=== PATIENT | female | born 1975 | race American Indian/Alaskan Native ===

== ENCOUNTER 2017-09-19 13:23 | Outpatient (CLI) | payer BC ==
--- NOTE | 2017-09-20 14:17 | Mammography Report ---
BILATERAL DIGITAL SCREENING MAMMOGRAM with CAD: 09/19/17 13:23:00 CLINICAL: Routine screening. COMPARISON: 10/13/15 FINDINGS: There are bilateral scattered areas of fibroglandular density.No mass, architectural distortion or suspicious calcifications. IMPRESSION: No mammographic evidence of malignancy. BI-RADS CATEGORY: 1 -- Negative RECOMMENDATION: Routine mammographic screening in one year. COMMENT: Patient follow-up letters are generated by our [employer] application.
== END 2017-09-19 13:24 | disposition home or self-care (01) ==
LOC: SPVWC 13:23
PROVIDERS: ATTEND Obstetrics & Gynecology
DX: Z12.31 Encounter for screening mammogram for malignant neoplasm of breast (principal)
CPT/HCPCS: 77067

== ENCOUNTER 2017-11-23 06:07 | Day surgery (SDC) | payer BC ==
--- NOTE | 2017-11-22 20:02 | History and Physical Report ---
History of Present Illness Date of examination: 11/19/17 History of present illness: Patient has been reassessed/reevaluated. H&P has been reviewed. No interval changes. This is a 42 years old female who presents with pelvic pain. patient has been seen twice in last 6 months for severe pelvic last visit revealed 10 cm dermoid cyst. Patient seen by Dr Christopher recently Records reviewed . She complains of dysmenorrhea and back pain, but denies dysuria, dyspareunia, vaginal itching, vaginal discharge, vaginal odor, painful bowel movements, constipation, diarrhea, nausea and fever. Pain is located suprapubic, flank and low back. She describes the pain as sharp and cramping. Patient notes pain is worse with activity. Patient notes pain is better with narcotics. Patient workup included a repeat ultrasound which revealed a persistent large right ovarian mass consistent with a teratoma Vital Signs: Patient Profile: 42 Years Old Female LMP: 10/30/2017 Height: 67.5 inches (171.45 cm) Weight: 178 pounds BMI: 27.46 Menstrual History: LMP (date): 10/30/2017 Current Method of Contraception: Essure Date of Last Pap Smear: 09/25/2017 Past History : 4 Term Births: 2 Premature Births: 0 Living Children: 2 Para: 2 Mult. Births: 0 Prev : 0 Prev. attempt? none Aborta: 2 Elect. Ab: 2 Spont. Ab: 0 Ectopics: [address] LIAISON History Operations: Essure Tubal Ligation (2014) Abnormal PAP: negative Uterine Anomaly: positive fibroids Infection History HIV Risk Eval: no Hx of STD: None Active Medications (reviewed today): None Current Allergies (reviewed today): No known allergies Past Medical History: Fibroids Past Surgical History: Essure Tubal Ligation (2014) Family History Summary: Mother (biol.) - Has Family History of Hypertension - Entered On: 10/08/2017 Social History: Reviewed history from 09/24/2017 and no changes required: Patient is single Smoking History: Patient has never smoked. Risk Factors: Smoked Tobacco Use: Never smoker Smokeless Tobacco Use: Never Passive smoke exposure: no Drug use: no HIV high-risk behavior: no Alcohol use: yes Exercise: no Seatbelt use: 100 % PAP Smear History: Date of Last PAP Smear: 09/25/2017 Review of Systems General Denies fever, chills, sweats, anorexia, fatigue, weakness, malaise, weight loss and sleep disorder. Complains of menorrhagia, pelvic pain and painful periods. Denies vaginal discharge, incontinence, dysuria, hematuria, urinary frequency, amenorrhea, abnormal vaginal bleeding, genital sores, decreased libido, painful sex, urinary urgency, hot flashes, vaginal dryness, vaginal itching and vaginal odor. CV Denies chest pains, palpitations, syncope, dyspnea on exertion, orthopnea, PND and peripheral edema. Resp Denies cough, dyspnea at rest, excessive sputum, hemoptysis, wheezing and pleurisy. GI Denies nausea, vomiting, diarrhea, constipation, change in bowel habits, abdominal pain, melena, hematochezia, jaundice, gas/bloating, indigestion/ heartburn, dysphagia and odynophagia. Breast Denies left breast lump, right breast lump, nipple discharge, bloody discharge from nipple, breast pain, abnormal mammogram and breast enlargement. MS Complains of back pain. Psych Denies depression, anxiety, irritability and mood swings. Past History Past Medical History: other (see HPI) Past Surgical History: Other (see HPI) Social history: other (see HPI) Family history: other (see HPI) Medications and Allergies Allergies Allergy/AdvReac Type Severity Reaction Status Date / Time No Known Allergies Allergy Unverified 11/22/17 10:23 Home Medications Medication Instructions Recorded Confirmed Last Taken Type No Known Home Medications [No 11/22/17 11/22/17 Unknown History Reported Home Medications] Active Meds: Active Medications Lactated Ringer's (Lactated Ringers) 1,000 mls @ 100 mls/hr IV DIRECT MELYSSA Midazolam HCl (Versed) 2 mg IV PREOP NR Stop: 11/23/17 23:59 Review of Systems Constitutional: other (see HPI) Exam - Physical Exam Narrative exam: HEENT: normocephalic, no lesions or deformities Neck/Thyroid: supple, thyroid normal Skin no significant abnormal lesions or rashes Chest: respiratory effort normal, clear to auscultation Breasts: skin/areolae normal, no masses, no nipple discharge, no erythema/warmth /tenderness, and axillae normal. CV: regular, normal S1-S2, no murmur, no rub, no gallop Abdomen: normal bowel sounds, soft, nontender, no HSM Musculoskeletal: grossly normal ROM in joints, no joint tenderness or muscle weakness Neuro: no gross anomalities Extremities: no clubbing, cyanosis, or edema COURT LIAISON Exams Vulva/Vagina: No lesions, normal BUS, normal rugae Cervix: No lesions; no cervical motion tenderness Uterus: enlarged uterus 14 -16 weeks in size Adnexae: mass appreciated Rectovaginal: exam defered Results - Labs CBC & Chem 7: 11/23/17 06:30 Assessment and Plan - Patient Problems (1) Ovarian mass, right Current Visit: No Status: Acute Plan to address problem: Discussed ultrasound findings patient ovarian mass appears to beconsistent with dermoid cyst.Diagnosis explained to patient . Questions answered. Discussed indication for operative treatment. Discuss the risks of the surgery including infection, bleeding possibly heavy enough to require a blood transfusion, possible damage to adjacent organs. discuss of possibility of laparotomy needed. Questions answered patient agreed to proceed Benign teratoma explained. Questions answered. Patient desires to try to preserve ovarian tissue where the mass is but understands that the mass is taking up most of her ovary and oophorectomy will most likely be done. Patient understands and desires to proceed. Orders: (2) Intramural leiomyoma of uterus Current Visit: No Status: Chronic Plan to address problem: Patient desires expectant management for now (3) Pelvic pain Current Visit: No Status: Acute
[~2017-11-23 06:07] MED LIST: ANCEF/STERILE WATER 2 GM/20 ML 2 GM/20 ML SYRINGE IV NR; LACTATED RINGERS 1,000 ML IV SCH; VERSED IV NR
[2017-11-23 07:00] LABS: Basophils % (Auto) 0.5 % (0.0-1.8); Eosinophils # (Auto) 0.3 K/mm3 (0.0-0.4); Eosinophils % (Auto) 4.5 % (0.0-4.3); Hematocrit 36.2 % (30.3-42.9); Hemoglobin 11.8 gm/dl (10.1-14.3); Lymphocytes # (Auto) 1.4 K/mm3 (1.2-5.4); Lymphocytes % (Auto) 23.3 % (13.4-35.0); Mean Corpuscular HGB Conc 33 % (30-34); Mean Corpuscular Volume 75 fl (79-97); Monocytes # (Auto) 0.6 K/mm3 (0.0-0.8); Monocytes % (Auto) 9.6 % (0.0-7.3); Platelet Count 218 K/mm3 (140-440); Red Blood Count 4.84 M/mm3 (3.65-5.03); Red Cell Distribution Width 14.9 % (13.2-15.2)
[2017-11-23 07:06] LABS: Mean Corpuscular Hemoglobin 24 pg (28-32)
[2017-11-23] MEDS ORDERED: SUBLIMAZE ONE (07:22)
[2017-11-23] MEDS ORDERED: XYLOCAINE MPF 2% ONE (07:22)
[2017-11-23] MEDS ORDERED: ZEMURON IV ONE ×2 (07:22→10:14)
[2017-11-23] MEDS ORDERED: DIPRIVAN 10 MG/ML IV ONE (07:23)
[2017-11-23] MEDS ORDERED: DECADRON ONE (07:30)
[2017-11-23] MEDS ORDERED: ANCEF/STERILE WATER 2 GM/20 ML IV NR (08:00)
--- NOTE | 2017-11-23 08:10 | Anesthesia Consultation ---
Anesthesia Consult and Med Hx Date of service: 11/23/17 - Airway Anesthetic Teeth Evaluation: Poor (sverely loose bottom tooth ) ROM Head & Neck: Adequate Mental/Hyoid Distance: Adequate Mallampati Class: Class I Intubation Access Assessment: Good - Pulmonary Exam CTA: Yes - Cardiac Exam Cardiac Exam: RRR - Pre-Operative Health Status ASA Pre-Surgery Classification: ASA2 Proposed Anesthetic Plan: General - Pulmonary Hx Smoking: Yes (Former) - Other Systems Hx Alcohol Use: Yes (occas)
--- NOTE | 2017-11-23 08:11 | Anesthesia Day of Surgery ---
Anesthesia Day of Surgery - Day of Surgery Patient Examined: Yes Patient H&P Reviewed: Yes Patient is NPO: Yes
[2017-11-23] MEDS ORDERED: DEMEROL IV PRN (09:51)
[2017-11-23] MEDS ORDERED: ZOFRAN IV PRN (09:51)
--- NOTE | 2017-11-23 09:52 | Anesthesia Day of Surgery ---
Anesthesia Day of Surgery - Day of Surgery Patient Examined: Yes Patient H&P Reviewed: Yes Patient is NPO: Yes
--- NOTE | 2017-11-23 09:53 | Anesthesia Consultation ---
Anesthesia Consult and Med Hx Date of service: 11/23/17 - Airway Anesthetic Teeth Evaluation: Good ROM Head & Neck: Adequate Mental/Hyoid Distance: Adequate Mallampati Class: Class I Intubation Access Assessment: Good - Pulmonary Exam CTA: Yes - Cardiac Exam Cardiac Exam: RRR - Pre-Operative Health Status ASA Pre-Surgery Classification: ASA2 Proposed Anesthetic Plan: General - Pulmonary Hx Smoking: Yes (Former) - Central Nervous System Hx Psychiatric Problems: No - Other Systems Hx Alcohol Use: Yes (occas) Hx Cancer: No
[2017-11-23] MEDS ORDERED: MARCAINE 0.25% INFILTRATI ONE ×2 (10:00→11:13)
[2017-11-23] MEDS ORDERED: NEO SYNEPHRINE/NS Syringe(OR USE) IV ONE (10:14)
[2017-11-23] MEDS ORDERED: ZOFRAN ONE (11:09)
[2017-11-23] MEDS ORDERED: NACL 0.9% IR ONE ×2 (11:13)
[2017-11-23] MEDS ORDERED: ROBINUL ONE (11:18)
[2017-11-23] MEDS ORDERED: BLOXIVERZ ONE (11:18)
--- NOTE | 2017-11-23 11:51 | Operative Report ---
Operative Report Operative Report: Date of procedure: 11/23/2017 Pre-operative diagnosis: Right ovarian mass Post-operative diagnosis: Right dermoid cyst and leiomyomata including a cervical canal myoma. Procedure name(s):Robotic Assisted right salpingo-oophorectomy Surgeon: Tobias Topete MD [employer] Sleeve Worker: Sejal damicocertified registered dental assistant Anesthesia: General EBL: Minimal Complications: None Findings: Patient with the normal-appearing left adnexa with a approximately 10 cm in diameter right dermoid cyst which had a sebaceous appearing fluid and hair Specimen(s): Right adnexa Procedure: Patient was brought to the operating room where general anesthesia was induced without difficulty. Patient was placed in the dorsal lithotomy position. Prepped and draped in the usual sterile manner for robotic procedure. Dietrich catheter was placed without difficulty. Speculum was placed in the vagina. Could not place uterine manipulator appearance of possible myoma in the cervical canal. Sponge stick was placed within the uterine manipulation. Attention was now switched to the patient's abdomen. A vertical supra-umbilicus incision was made with a scalpel. A 10-12 trocar was placed in this incision under direct visualization. Intra-abdominal placement was verified with no evidence of internal organ damage. The patient pelvic findings were noted as above. It was determined that the patient was a candidate for robotic procedure. On both sides the umbilical incision at about 8 cm, incisions were made for robotic trocar. Each robotic trocar was placed under direct visualization with no evidence of internal organ damage. Two surgery nurse ports were then placed. One 8-10 trocar was placed 2 fingerbreadths above the right iliac crest. The second [address] between the camera port and the right robotic arms port. At this time the patient was placed in extreme Trendelenburg. The da Niecy robot was then docked on the patient's left side. The trocars connected to the robot appropriately. At this time I took my place under the robotic operating olvera. Starting on the patient's right side the mesosalpinx of the tube were cauterized for mild distal to proximal tube. Bipolar cautery was placed across the proximal portion of the fallopian tube. This area was cauterized and cut the fallopian tube was then removed from the large optometry assistant port. The ovarian vessels were identified and the right ureter was clearly seen in our operative field. The infundibulopelvic pelvis vessels were cauterized and cut freeing the large mass. Endo Catch was placed through the large optometry assistant port. The ovarian mass due to its sides had to be deflated in order to place in the Endo Catch. The time this sebaceous fluid and hair could be seen as a drain did drain into the pelvis. The deflated mass and place an Endo Catch and removed through the lower right optometry assistant port. All pedicles were inspected and found to be hemostatic. The ureters were identified bilaterally and found to be functioning normal. The patient had clear urine in the Dietrich catheter with no evidence of mixture with blood. The patient's pelvis and upper abdomen was copiously irrigated with approximately 4 L of irrigation until clear irrigation fluid was noted. During the irrigation the patient was disconnected from the da Niecy device in order to place an reverse Trendelenburg to clearly rinse and suctioned of fluid from the abdomen. All instruments were then removed. The large trocar sites were closed in layers and 4-0 Vicryl. The smaller incisions were closed subcuticularly with 4-0 Vicryl. The patient tolerated procedure well. She was awakened in the operating room and accompanied to the recovery room in good condition.
--- NOTE | 2017-11-23 11:57 | Short Stay Summary ---
Short Stay Documentation Date of service: 11/23/17 - History H&P: dictated Past Medical History: other (see HPI) Past Surgical History: Other (see HPI) Social history: other (see HPI) - Allergies and Medications Current Medications: Allergies No Known Allergies Allergy (Unverified 11/22/17 10:23) Home Medications Medication Instructions Recorded Confirmed Last Taken Type No Known Home Medications [No 11/22/17 11/22/17 Unknown History Reported Home Medications] Active Medications Cefazolin Sodium (Ancef/Sterile Water 2 Gm/20 Ml) 2 gm IV PREOP NR Stop: 11/23/17 23:59 Hydromorphone HCl (Dilaudid) 0.5 mg IV Q10MIN PRN PRN Reason: Pain , Severe (7-10) Stop: 11/23/17 18:00 Lactated Ringer's (Lactated Ringers) 1,000 mls @ 100 mls/hr IV DIRECT MELYSSA Last Admin: 11/23/17 07:30 Dose: 100 mls/hr Meperidine HCl (Demerol) 25 mg IV ONCE PRN PRN Reason: Shivering Stop: 11/23/17 16:00 Midazolam HCl (Versed) 2 mg IV PREOP NR Stop: 11/23/17 23:59 Last Admin: 11/23/17 07:30 Dose: 2 mg Ondansetron HCl (Zofran) 4 mg IV ONCE PRN PRN Reason: Nausea And Vomiting Stop: 11/23/17 16:00 - Brief post op/procedure progress note Date of procedure: 11/23/17 (see dictated operative note) - Hospital course Hospital course: Patient was admitted underwent the above him procedure without any complications. Patient received copious irrigation had electrolytes checked and the recovery room. Labs are stable patient will go home from recovery room. Patient will be discharged with follow-up in office in 1-2 weeks for postop check. - Disposition Condition at discharge: Good Disposition: DC-01 TO HOME OR SELFCARE - Discharge Diagnoses (1) Ovarian mass, right Status: Resolved (2) Intramural leiomyoma of uterus Status: Chronic (3) Pelvic pain Status: Acute Short Stay Discharge Plan Activity: advance as tolerated Diet: regular Wound: open to air Additional Instructions: Patient office for fever chills nausea vomiting or pain uncontrolled by pain medications. Patient will keep her scheduled office Follow up with: GEN ELLISON MD [Primary Care Provider] - 7 Days Prescriptions: Sulfamethoxazole/Trimethoprim [Bactrim DS TAB] 1 each PO BID #14 tablet Ibuprofen [Motrin 800 MG tab] 800 mg PO Q6H PRN #30 tablet PRN Reason: Pain oxyCODONE /ACETAMINOPHEN [Percocet 5/325 mg] 1 - 2 tab PO Q4H PRN #30 tablet PRN Reason: Pain, Moderate
[2017-11-23 12:19] LABS: BUN/Creatinine Ratio 10; Blood Urea Nitrogen 7 mg/dL (7-17); Calcium 8.3 mg/dL (8.4-10.2)
[2017-11-23 12:20] LABS: Hemolysis Index 2
[2017-11-23] MEDS: DILAUDID IV PRN ×2 (12:25→12:46)
--- NOTE | 2017-11-23 13:36 | Post Anesthesia Evaluation ---
- Post Anesthesia Evaluation Patient Participated: Yes Airway Patent: Yes Stable Respiratory Function: Yes Nausea/Vomiting: No Temp > 96.8F: Yes Pain Manageable: Yes Adequeate Hydration: Yes Anesthesia Complications: No
[2017-11-23 16:56] VITALS: BP 91/64
== END 2017-11-23 14:00 | disposition home or self-care (01) ==
LOC: OR 06:07
PROVIDERS: ATTEND Obstetrics & Gynecology
DX: D27.0 Benign neoplasm of right ovary (principal); D25.9 Leiomyoma of uterus, unspecified; Z98.51 Tubal ligation status; Z87.891 Personal history of nicotine dependence; Z98.890 Other specified postprocedural states
CPT/HCPCS: 36415; 58661; 80048; 81025; 85025; 86850; 86900; 86901; 88305; A4217; J0690; J1100; J1170; J2250; J2370; J2405; J2704; J2710; J3010; J7120; S2900; 88302

== ENCOUNTER 2017-11-26 19:26 | Emergency (ER) | payer BC ==
[2017-11-26 19:37] VITALS: BP 113/77
[2017-11-26 20:24] LABS: Basophils % (Auto) 0.8 % (0.0-1.8); Eosinophils # (Auto) 0.2 K/mm3 (0.0-0.4); Eosinophils % (Auto) 4.3 % (0.0-4.3); Hematocrit 33.6 % (30.3-42.9); Hemoglobin 10.7 gm/dl (10.1-14.3); Lymphocytes # (Auto) 1.6 K/mm3 (1.2-5.4); Lymphocytes % (Auto) 28.2 % (13.4-35.0); Mean Corpuscular HGB Conc 32 % (30-34); Mean Corpuscular Volume 75 fl (79-97); Monocytes # (Auto) 0.4 K/mm3 (0.0-0.8); Monocytes % (Auto) 7.6 % (0.0-7.3); Platelet Count 225 K/mm3 (140-440); Red Blood Count 4.49 M/mm3 (3.65-5.03); Red Cell Distribution Width 14.8 % (13.2-15.2)
[2017-11-26 20:26] LABS: Mean Corpuscular Hemoglobin 24 pg (28-32)
[2017-11-26 20:37] LABS: BUN/Creatinine Ratio 11; Blood Urea Nitrogen 8 mg/dL (7-17); Calcium 9.4 mg/dL (8.4-10.2); Hemolysis Index 0
--- NOTE | 2017-11-26 21:14 | XRay Report ---
FINAL REPORT PROCEDURE: XR CHEST ROUTINE 2V TECHNIQUE: PA and lateral chest radiographs were obtained. CPT 06150 HISTORY: Shortness of breath COMPARISON: No prior studies are available for comparison. FINDINGS: Heart: Normal. Mediastinum/Vessels: Normal. Lungs/Pleural space: Lungs are clear and expanded. There are no infiltrates, effusions or pneumothoraces per. Bony thorax: No acute osseous abnormality. Other: IMPRESSION: Normal heart and lungs..
== END 2017-11-26 23:52 | disposition left against medical advice (07) ==
LOC: ED 19:26
DX: R07.9 Chest pain, unspecified (principal); R06.02 Shortness of breath; Z53.21 Procedure and treatment not carried out due to patient leaving prior to being seen by health care provider
CPT/HCPCS: 36415; 71046; 80048; 84484; 85025; 93005; 93010

== ENCOUNTER 2020-09-01 08:05 | Observation (INO) | payer BC, OTHER ==
[~2020-09-01 08:05] MED LIST changes: +ACETAMINOPHEN 500 MG TAB PO SCH; -ANCEF/STERILE WATER 2 GM/20 ML 2 GM/20 ML SYRINGE IV NR; +CELECOXIB 200 MG CAP PO NR; +GABAPENTIN 300 MG CAP PO NR; +MIDAZOLAM 2 MG/2 ML INJ IV NR; +SCOPOLAMINE TRANSDERMAL PATCH 72 HR TD NR; -VERSED IV NR; +fentaNYL 100 MCG/2 ML INJ IV PRN
--- NOTE | 2020-09-01 08:48 | History and Physical Report ---
History of Present Illness Date of examination: 09/01/20 Date of admission: 09/01/2020 Chief complaint: Vaginal bleeding and uterine fibroids History of present illness: 45-year-old -0-3-2 with a history of symptomatic uterine fibroids and heavy vaginal bleeding. The patient underwent a pelvic ultrasound that revealed a markedly enlarged fibroid uterus with evidence of a cervical leiomyoma. An exam was performed in the office that demonstrated evidence of a prolapsing leiomyoma into the vaginal vault. The patient was experiencing active bleeding at the time. She is elected to undergo definitive surgical management. Past History Past Medical History: other (Uterine fibroids; anemia) Past Surgical History: other (Essure; laparoscopy/ovarian cystectomy) Social history: - Obstetrical History : 5 Para: 2 Hx # Term Pregnancies: 2 Number of Pregnancies: 0 Spontaneous Abortions: 3 Induced : 0 Number of Living Children: 2 Medications and Allergies Allergies Allergy/AdvReac Type Severity Reaction Status Date / Time No Known Allergies Allergy Unverified 11/22/17 10:23 Home Medications Medication Instructions Recorded Confirmed Last Taken Type Ibuprofen [Motrin 800 MG tab] 800 mg PO Q6H PRN #30 tablet 11/23/17 Unknown Rx Sulfamethoxazole/Trimethoprim 1 each PO BID #14 tablet 11/23/17 Unknown Rx [Bactrim DS TAB] oxyCODONE /ACETAMINOPHEN [Percocet 1 - 2 tab PO Q4H PRN #30 tablet 11/23/17 Unknown Rx 5/325 mg] Active Meds: Active Medications Acetaminophen (Acetaminophen 500 Mg Tab) 1,000 mg PO PREOP MELYSSA Stop: 09/01/20 23:01 Cefazolin Sodium (Cefazolin/Sterile Water 2 Gm/20 Ml Syringe) 2 gm IV PREOP NR Stop: 09/01/20 23:00 Celecoxib (Celecoxib 200 Mg Cap) 200 mg PO PREOP NR Stop: 09/01/20 23:00 Fentanyl (Fentanyl 100 Mcg/2 Ml Inj) 100 mcg IV ONCE PRN PRN Reason: sedation for nerve block Gabapentin (Gabapentin 300 Mg Cap) 300 mg PO PREOP NR Stop: 09/01/20 23:01 Lactated Ringer's (Lactated Ringers) 1,000 mls @ 100 mls/hr IV DIRECT MELYSSA Stop: 09/01/20 23:59 Midazolam HCl (Midazolam 2 Mg/2 Ml Inj) 2 mg IV PREOP NR Stop: 09/01/20 23:00 Scopolamine (Scopolamine Transdermal Patch 72 Hr) 1 each TD PREOP NR Stop: 09/01/20 23:01 Review of Systems All systems: negative Constitutional: fatigue Genitourinary: vaginal bleeding, pelvic pain - Physical Exam Breasts: Positive: deferred Cardiovascular: Regular rate Lungs: Positive: Clear to auscultation Abdomen: Positive: normal appearance Genitourinary (Female): Positive: other (Prolapsing 5 cm leiomyoma; enlarged uterus) Cervix: Positive: other (Prolapsing leiomyoma) Uterus: Positive: enlarged Results All other labs normal. Assessment and Plan - Patient Problems (1) Uterine leiomyoma Current Visit: Yes Status: Acute Plan to address problem: Patient is scheduled to undergo a robotic hysterectomy and bilateral salpingectomy (2) Dysfunctional uterine bleeding Current Visit: Yes Status: Acute (3) Anemia due to chronic blood loss Current Visit: Yes Status: Acute
[2020-09-01] MEDS ORDERED: ceFAZolin/STERILE WATER 2 GM/20 ML SYRINGE IV NR (09:00)
[2020-09-01 09:10] LABS: Hematocrit 25.7 % (30.3-42.9); Mean Corpuscular HGB Conc 31 % (30-34); Platelet Count 232 K/mm3 (140-440); Red Blood Count 4.44 M/mm3 (3.65-5.03)
[2020-09-01 09:12] LABS: Mean Corpuscular Volume 58 fl (79-97); Red Cell Distribution Width 21.9 % (13.2-15.2)
[2020-09-01] MEDS ORDERED: SODIUM CHLORIDE 0.9% 500 ML 500 ML IV ONE (09:20)
[2020-09-01] MEDS ORDERED: BUPIVACAINE-EPINEPHRINE/PF 0.5%-1:200,000 (30 ML) VIAL INFILTRATI ONE (09:25)
[2020-09-01] MEDS ORDERED: HYDROmorphone 1 MG/1 ML INJ IV PRN (09:54)
[2020-09-01] MEDS ORDERED: ONDANSETRON 4 MG/2 ML INJ IV PRN (09:54)
--- NOTE | 2020-09-01 09:54 | Anesthesia Day of Surgery ---
Anesthesia Day of Surgery - Day of Surgery Patient Examined: Yes Patient H&P Reviewed: Yes Patient is NPO: Yes
--- NOTE | 2020-09-01 09:54 | Anesthesia Consultation ---
Anesthesia Consult and Med Hx Date of service: 09/01/20 - Airway Anesthetic Teeth Evaluation: Good ROM Head & Neck: Adequate Mental/Hyoid Distance: Adequate Mallampati Class: Class II Intubation Access Assessment: Probably Good - Pre-Operative Health Status ASA Pre-Surgery Classification: ASA2 Proposed Anesthetic Plan: General Nerve Block: TAP - Pulmonary Hx Smoking: Yes (Former smoker) Hx Respiratory Symptoms: No - Cardiovascular System Hx Hypertension: No - Central Nervous System CVA: No - Endocrine Hx Renal Disease: No Hx Liver Disease: No Hx Insulin Dependent Diabetes: No Hx Non-Insulin Dependent Diabetes: No Hx Thyroid Disease: No - Hematic Hx Anemia: Yes (hx blood transfusions) - Additional Comments Anesthesia Medical History Comments: No hx anesthetic complications.
[2020-09-01] MEDS ORDERED: fentaNYL 100 MCG/2 ML INJ ONE (10:13)
[2020-09-01] MEDS ORDERED: ONDANSETRON 4 MG/2 ML INJ ONE (10:13)
[2020-09-01] MEDS ORDERED: LIDOCAINE MPF (2%) 20 MG/1 ML VIAL 5 ML ONE (10:13)
[2020-09-01] MEDS ORDERED: dexAMETHasone 20 MG/5 ML VIAL ONE (10:13)
[2020-09-01] MEDS ORDERED: propofoL 200 MG/20 ML VIAL IV ONE (10:14)
[2020-09-01] MEDS ORDERED: ETOMIDATE 20 MG/10 ML INJ IV ONE (10:19)
[2020-09-01] MEDS ORDERED: NEOMY 40 MG/POLYMYXIN B 200,000 UNITS/ML (GU) AMPULE IR ONE ×2 (10:20→11:39)
[2020-09-01] MEDS ORDERED: SODIUM CHLORIDE 0.9% IRR 1,500 ML BOTTLE IR ONE (11:39)
[2020-09-01] MEDS ORDERED: SODIUM CHLORIDE 0.9% IRRIG SOLN 2000 ML IR ONE (11:40)
[2020-09-01] MEDS ORDERED: KETAMINE/STERILE WATER 50 MG/ML SYRINGE ONE (11:49)
[2020-09-01] MEDS ORDERED: PHENYLEPHRINE/NS 1,000 MCG/10 ML SYRINGE (OR USE) IV ONE (12:00)
[2020-09-01] MEDS ORDERED: ROCURONIUM 50 MG/5 ML INJ IV ONE (12:00)
[2020-09-01] MEDS ORDERED: ePHEDrine SULFATE 50 MG/1 ML INJ ONE (12:00)
[2020-09-01] MEDS ORDERED: MORPHINE 2 MG/1 ML INJ ONE ×2 (12:04→12:32)
[2020-09-01] MEDS ORDERED: LACTATED RINGERS 1,000 ML ONE (12:06)
[2020-09-01] MEDS ORDERED: GLYCOPYRROLATE 0.4 MG/2 ML INJ ONE (13:35)
[2020-09-01] MEDS ORDERED: NEOSTIGMINE 10MG/10 ML INJ MDV ONE (13:35)
--- NOTE | 2020-09-01 13:44 | Operative Report ---
Operative Report Operative Report: Date of surgery: September 01, 2020 Preoperative diagnoses: Symptomatic uterine fibroids; menorrhagia; anemia Postoperative diagnoses: Same as above Procedure: Robotic hysterectomy; bilateral salpingectomy; myomectomy; ovarian cystectomy Surgeon: Meggan Mcdowell M.D. Manager Zone: [place] Anesthesia: Gen. endotracheal anesthesia Estimated blood loss: 500 mL Pathology: Leiomyoma, cervix, uterus, bilateral fallopian tubes, left ovarian cyst Indication: 45-year-old -0-3-2 with a history of symptomatic uterine fibroid and anemia. The patient is elected to undergo definitive surgical management. Procedure: The patient was taken to the operating room and given general endotracheal anesthesia without complication after a time out was performed confirming the surgery and identity of the patient. She was prepped and draped in a normal sterile fashion. A bivalve speculum was placed in the patient's vagina. There was evidence of a prolapsing leiomyoma measuring approximately 5 cm coming from the cervical os. The leiomyoma was adherent to the cervix and the lower uterine segment. Bovie cautery was we was used in order to excise the majority of the leiomyoma. The uterine manipulator could not be placed secondary to the patient not have any definitive cervical os or delineation of the ectocervix. A tenaculum was placed on the remaining stump of the leiomyoma and the vagina was packed with a warm laparotomy sponge. the bivalve speculum was then removed. Attention was then turned to the patient's abdomen where a 12millimeter supra umbilical skin incision was then made. A Veress needle was placed and peritoneal entry was verified water-filled syringe. Insufflation of the peritoneal cavity was performed with CO2 gas. The 12 mm trocar was then placed under direct visualization. An additional 8 mm robotic trocar was placed on the patient's left and right lateral side just opposite of the supraumbilical trocar. An additional 5 mm right lateral trocar was then placed as the accessory port. The supraumbilical 12 mm trocar site was closed with the Reynaldo Cooper device and 0-vicryl suture. The patient was then placed in steep Trendelenburg. The da Niecy robot was then engaged. A fenestrated forcep was placed in arm 2 and a vessel sealer was placed in arm 1. General survey of the abdomen pelvis revealed surgically absent right ovary with evidence of only a remnant seen. The left ovary had evidence of a complex cyst. The uterus was enlarged with evidence of a leiomyoma. The surgeon then transferred to the surgical console. The mesosalpinx was then isolated on the right. The vessel sealer was used to coagulate the mesosalpinx which was then transected. The tube was transected from the ovary. The tubo-ovarian ligament was then coagulated and transected. The round ligament was then coagulated and transected also. The vesicouterine peritoneum was then entered from the patient's right side. The uterine vessels were then coagulated with the vessel sealer. The vessels were then transected . Attention was then turned to the pa tient's left side where the tubo-ovarian ligament and mesosalpinx were again isolated coagulated and transected. The vesical peritoneum was then entered from the left and joined in the midline. Peritoneum was reflected off of the lower uterine segment. Uterine vessels were then coagulated and then transected. The blood supply to the uterus was adequately contained. Secondary to the uterine manipulator not being able to be placed secondary to the cervical leiomyoma remainder of the surgery was performed vaginally. A weighted bivalve speculum was placed in the vagina with a [place] that was placed anteriorly. Posterior colpotomy was made with the Wilhelm scissors and a long duckbill retractor was then placed. Anterior colpotomy was made without difficulty and the Octaviano retractor was placed anteriorly. The curved Jamie clamps were used in order to clamp transected and suture ligate the uterosacral ligaments. A Jamie fixation stitch was used with 0 Vicryl. This is done in a sequential fashion until the uterus was removed vaginally. The surgeon transferred back to the surgical console and the vaginal cuff was repaired robotically. Attention was then turned to the patient's left tube with the monopolar scissors were used to excise the ovarian cyst. The ovarian cyst was then passed through the vagina for removal. The vaginal cuff was then closed in a running fashion with V lock suture. Irrigation of the pelvis was performed. Hemoblast was applied to the incision. The [employer] robot was undocked. The trocars were removed and the insuffliation was released. The skin was then reapproximated with 4-0 Monocryl. The tissue was sent to pathology which included the cervix, leiomyoma, bilateral tubes and uterus. The patient was then successfully extubated. She was then taken to the recovery room in stable condition. All sponge laps and needle counts were correct x2.
[2020-09-01] MEDS ORDERED: SODIUM CHLORIDE 0.9% 500 ML 500 ML ONE (14:04)
--- NOTE | 2020-09-01 16:43 | Post Anesthesia Evaluation ---
- Post Anesthesia Evaluation Patient Participated: Yes Airway Patent: Yes Stable Respiratory Function: Yes Nausea/Vomiting: No Temp > 96.8F: Yes Pain Manageable: Yes Adequeate Hydration: Yes Anesthesia Complications: No Other Comments: Received 2 units pRBCs in PACU prior to d/c to floor.
[2020-09-01] MEDS ORDERED: ACETAMINOPHEN 325 MG TAB PO PRN (16:46)
[2020-09-01] MEDS ORDERED: IBUPROFEN 800 MG TAB PO PRN (16:46)
[2020-09-01] MEDS ORDERED: oxyCODONE /ACETAMINOPHEN 5-325MG TAB PO PRN (16:46)
[2020-09-01] MEDS ORDERED: D5W/LACTATED RINGERS 1,000 ML IV SCH (16:46)
[2020-09-01] MEDS ORDERED: KETOROLAC 30 MG/1 ML INJ IV PRN (16:46)
[2020-09-01 20:44] VITALS: BP 102/56
== END 2020-09-01 20:20 | disposition home or self-care (01) ==
LOC: OR 08:05 → OB 13:54
PROVIDERS: ADMIT Obstetrics & Gynecology; ATTEND Obstetrics & Gynecology
DX: D50.0 Iron deficiency anemia secondary to blood loss (chronic) (principal); D25.1 Intramural leiomyoma of uterus; N93.8 Other specified abnormal uterine and vaginal bleeding; Z98.890 Other specified postprocedural states
CPT/HCPCS: 36415; 36430; 58552; 64450; 81025; 85027; 86850; 86900; 86901; 86920; 88305; 88307; 96374; A4217; G0378; J0690; J1100; J1170; J1885; J2250; J2270; J2370; J2405; J2710; J3010; J3490; J7040; J7120; P9016; S2900; J2704